=== PATIENT | male | born 1950 | race Caucasian/White ===

== ENCOUNTER 2019-07-13 14:27 | Emergency (ER) | payer MEDICARE ==
[~2019-07-13] VITALS: Ht 188 cm; Wt 103.6 kg
[2019-07-13 14:46] VITALS: BP 150/85; Ht 188 cm; Wt 103.6 kg
[2019-07-13] MEDS ORDERED: ZYLOPRIM100 MG PO (14:47)
[2019-07-13] MEDS ORDERED: LISINOPRIL10 MG PO (14:47)
[2019-07-13] MEDS ORDERED: SCOT-TUSSI10 MG/5 ML PO (16:17)
[2019-07-13] MEDS ORDERED: CLARITIN 10 MG10 MG PO (16:17)
[2019-07-13] MEDS ORDERED: ZPAK PO (16:17)
== END 2019-07-13 17:10 | disposition home or self-care (01) ==
LOC: D.ER 14:27
DX: J06.9 Acute upper respiratory infection, unspecified (principal); I10 Essential (primary) hypertension